=== PATIENT | female | born 1990 | race Caucasian/White ===

== ENCOUNTER → 2016-12-16 | Outpatient (CLI) | payer OTHER | END | disposition home or self-care (01) | LOC: MW.CHOBGYN 08:45 | PROVIDERS: ATTEND Obstetrics & Gynecology | DX: O28.8 Other abnormal findings on antenatal screening of mother (principal) | CPT/HCPCS: 81420 ==

== ENCOUNTER → 2016-12-20 | Outpatient (CLI) | payer OTHER | LOC: MW.CHOBGYN 14:41 | PROVIDERS: ATTEND Obstetrics & Gynecology | DX: Z34.90 Encounter for supervision of normal pregnancy, unspecified, unspecified trimester (principal) | CPT/HCPCS: 81003 ==

== ENCOUNTER → 2017-02-15 | Outpatient (CLI) | payer OTHER | LOC: MW.CHOBGYN 10:50 | PROVIDERS: ATTEND Obstetrics & Gynecology | DX: Z34.90 Encounter for supervision of normal pregnancy, unspecified, unspecified trimester (principal) | CPT/HCPCS: 36415; 81003; 82950; 85027 ==

== ENCOUNTER → 2017-03-01 | Outpatient (CLI) | payer OTHER | LOC: MW.CHOBGYN 09:11 | PROVIDERS: ATTEND Obstetrics & Gynecology | DX: Z34.90 Encounter for supervision of normal pregnancy, unspecified, unspecified trimester (principal) | CPT/HCPCS: 81003 ==

== ENCOUNTER 2017-05-15 05:31 | Inpatient (IN) | payer OTHER ==
[2017-05-15] MEDS ORDERED: Sodium Chloride 0.9% 2.5 ML Syringe FLUSH PRN (05:53)
[2017-05-15] MEDS ORDERED: Carboprost Tromethamine 250 MCG/1 ML Amp IM PRN (05:53)
[2017-05-15] MEDS ORDERED: Butorphanol 1 MG/ML SDV IVPUSH PRN (05:53)
[2017-05-15] MEDS ORDERED: Misoprostol 200 MCG Tab PO PRN (05:53)
[2017-05-15] MEDS ORDERED: Methylergonovine 0.2 MG/1 ML Amp IM PRN (05:53)
[2017-05-15] MEDS ORDERED: Nalbuphine 10 MG/1 ML Vial IVPUSH PRN (05:53)
[2017-05-15] MEDS ORDERED: Lidocaine 1% 50 ML MDV INJECT PRN (05:53)
[2017-05-15] MEDS ORDERED: Sodium Chloride 0.9% 10 ML Syringe FLUSH PRN (05:53)
[2017-05-15] MEDS ORDERED: Water For Irrigation,Sterile 1,000 ML Container IRR PRN (05:53)
[2017-05-15] MEDS ORDERED: Terbutaline 1 MG/ML SDV SUBCUT PRN (06:25)
[2017-05-15] MEDS ORDERED: Oxytocin/Lactated Ringers 30 UNIT/500 ML BAG IV SCH (06:30)
[2017-05-15] MEDS: Lactated Ringers 1,000 ML IV SCH ×4 (06:53→14:09)
--- NOTE | 2017-05-15 08:50 | PCM.LDHP ---
L&D History of Present Illness - General Date of Service: 05/15/17 Admit Problem/Dx: Patient Status Order with Admit Dx/Problem 05/15/17 05:53 Patient Status [ADT] Routine Admission Diagnosis/Problem Admission Diagnosis/Problem Source of Information: Patient History Limitations: Reports: No Limitations - History of Present Illness Improves with: Reports: None Worsens with: Reports: None Associated Symptoms: Reports: N - Related Data Allergies/Adverse Reactions: Allergies Allergy/AdvReac Type Severity Reaction Status Date / Time No Known Allergies Allergy Verified 05/15/17 05:48 Past Medical History Cardiovascular History: Reports: Arrhythmia, Other (See Below) Other Cardiovascular History: SVT 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: Social & Family History - Family History Cardiac: Reports: Heart Murmur Neurological: Reports: Parkinson's Endocrine/Metabolic: Reports: Diabetes, type II - Tobacco Use Smoking Status *Q: Never Smoker Second Hand Smoke Exposure: No - Caffeine Use Caffeine Use: Reports: Soda, Other Other Caffeine Use: soda every other day - Recreational Drug Use Recreational Drug Use: No H&P Review of Systems - Review of Systems: Review Of Systems: See Below General: Reports: No Symptoms HEENT: Reports: No Symptoms Pulmonary: Reports: No Symptoms Cardiovascular: Reports: No Symptoms Gastrointestinal: Reports: No Symptoms Genitourinary: Reports: No Symptoms Musculoskeletal: Reports: No Symptoms Skin: Reports: No Symptoms Psychiatric: Reports: No Symptoms Neurological: Reports: No Symptoms Hematologic/Lymphatic: Reports: No Symptoms Immunologic: Reports: No Symptoms L&D Exam - Exam Exam: See Below - Vital Signs Weight: 60.781 kg - OB Specific Fundal Height In cm: 37 Contraction Intensity: Mild to Moderate Movement: Active Heart Tones: Present Presentation: Vertex - Leung Score Leung Score Consistency: Soft Leung Score Effacement: 51-70% Leung Score Dilation: 1-2 cm Leung Score Infant's Station: -2 - Exam General: Alert, Oriented HEENT: PERRLA, Conjunctiva Clear, EACs Clear, EOMI, Hearing Intact, Mucosa Moist & [place], Nares Patent, Normal Nasal Septum, Posterior Pharynx Clear, TMs Clear Neck: Supple, Trachea Midline Lungs: Clear to Auscultation, Normal Respiratory Effort Cardiovascular: Regular Rate, Regular Rhythm GI/Abdominal Exam: Normal Bowel Sounds, Soft, Non-Tender, No Organomegaly, No Distention, No Abnormal Bruit, No Mass, Pelvis Stable Rectal Exam: Normal Exam, Normal Rectal Tone Genitourinary: Normal external exam, Normal bimanual exam, Normal speculum exam Back Exam: Normal Inspection, Full Range of Motion Extremities: Normal Inspection, Normal Range of Motion, Non-Tender, No Pedal Edema, Normal Capillary Refill Skin: Warm, Dry, Intact Neurological: Cranial Nerves Intact, Reflexes Equal Bilateral Psychiatric: Alert, Normal Affect, Normal Mood - Patient Data Lab Results Last 24 hrs: Laboratory Results - last 24 hr 05/15/17 05/15/17 Range/Units 06:07 06:07 WBC 7.65 (4.0-11.0) K/uL RBC 4.01 L (4.30-5.90) M/uL Hgb 12.0 (12.0-16.0) g/dL Hct 35.5 L (36.0-46.0) % MCV 88.5 (80.0-98.0) fL MCH 29.9 (27.0-32.0) pg MCHC 33.8 (31.0-37.0) g/dL RDW Std Deviation 40.1 (28.0-62.0) fl RDW Coeff of Ksenia 13 (11.0-15.0) % Plt Count 242 (150-400) K/uL MPV 10.70 (7.40-12.00) fL Nucleated RBC % 0.0 /100WBC Nucleated RBCs # 0 K/uL Blood Type O POSITIVE Antibody Screen NEGATIVE Result Diagrams: 05/15/17 06:07 Problem List Initiated/Reviewed/Updated: Yes Orders Last 24hrs: Active Orders 24 hr Category Date Time Status Patient Status [ADT] Routine ADT 05/15/17 05:53 Active Bedrest Bathroom Privileges [RC] ASDIRECTED Care 05/15/17 06:25 Active Communication Order [RC] ASDIRECTED Care 05/15/17 06:25 Active Communication Order [RC] ASDIRECTED Care 05/15/17 06:25 Active Heart Tones [RC] CONTINUOUS Care 05/15/17 05:53 Active Non Stress Test [RC] PER UNIT ROUTINE Care 05/15/17 05:53 Active May Shower [RC] ASDIRECTED Care 05/15/17 05:53 Active Notify Provider [RC] PRN Care 05/15/17 05:53 Active Notify Provider [RC] PRN Care 05/15/17 06:25 Active Oxygen Therapy [RC] ASDIRECTED Care 05/15/17 06:25 Active Up ad Flakita [RC] ASDIRECTED Care 05/15/17 05:53 Active Vaginal Exam [RC] PRN Care 05/15/17 05:53 Active Vaginal Exam [RC] PRN Care 05/15/17 06:25 Active Vital Signs [RC] PER UNIT ROUTINE Care 05/15/17 05:53 Active Vital Signs [RC] PER UNIT ROUTINE Care 05/15/17 06:25 Active Butorphanol [Stadol] Med 05/15/17 05:53 Active 1 mg IVPUSH Q1H PRN Carboprost Tromethamine [Hemabate DS] Med 05/15/17 05:53 Active 250 mcg IM ASDIRECTED PRN Lactated Ringers [Ringers, Lactated] 1,000 ml Med 05/15/17 06:00 Active IV ASDIRECTED Lidocaine 1% [Xylocaine 1%] Med 05/15/17 05:53 Active 50 ml INJECT .ONCE PRN Methylergonovine [Methergine] Med 05/15/17 05:53 Active 0.2 mg IM ASDIRECTED PRN Misoprostol [Cytotec] Med 05/15/17 05:53 Active 200 mcg PO .ONCE PRN Oxytocin/Lactated Ringers [Pitocin in LR 30 Units/500 Med 05/15/17 06:30 Active ML] 30 unit in 500 ml IV TITRATE Sodium Chloride 0.9% [Saline Flush] Med 05/15/17 05:53 Active 10 ml FLUSH ASDIRECTED PRN Sodium Chloride 0.9% [Saline Flush] Med 05/15/17 05:53 Active 2.5 ml FLUSH ASDIRECTED PRN Terbutaline [Brethine] Med 05/15/17 06:25 Active 0.25 mg SUBCUT ASDIRECTED PRN Water For Irrigation,Sterile [Sterile Water for Med 05/15/17 05:53 Active Irrigation] 1,000 ml IRR ASDIRECTED PRN Scalp Electrode [WOMSER] Per Unit Routine Oth 05/15/17 05:53 Ordered Medication Administration Instruction [OM.PC] Q3H Oth 05/15/17 06:30 Ordered Peripheral IV Insertion Adult [OM.PC] Routine Oth 05/15/17 05:53 Ordered Resuscitation Status Routine Resus Stat 05/15/17 05:53 Ordered Medication Orders Butorphanol Tartrate (Stadol) 1 mg IVPUSH Q1H PRN PRN Reason: Pain Carboprost Tromethamine (Hemabate Ds) 250 mcg IM ASDIRECTED PRN PRN Reason: Post Hemorrhage Lactated Ringer's (Ringers, Lactated) 1,000 mls @ 150 mls/hr IV ASDIRECTED AMBER Last Admin: 05/15/17 06:53 Dose: 150 mls/hr Oxytocin/Lactated Ringer's (Pitocin In Lr 30 Units/500 Ml) 30 unit in 500 mls @ 2 mls/hr IV TITRATE AMBER; 2 MUNITS/MIN PRN Reason: Protocol Last Admin: 05/15/17 06:53 Dose: 2 munits/min, 2 mls/hr Lidocaine HCl (Xylocaine 1%) 50 ml INJECT .ONCE PRN PRN Reason: Laceration repair Methylergonovine Maleate (Methergine) 0.2 mg IM ASDIRECTED PRN PRN Reason: Post Hemorrhage Misoprostol (Cytotec) 200 mcg PO .ONCE PRN PRN Reason: Post Hemorrhage Sodium Chloride (Saline Flush) 10 ml FLUSH ASDIRECTED PRN PRN Reason: Keep Vein Open Sodium Chloride (Saline Flush) 2.5 ml FLUSH ASDIRECTED PRN PRN Reason: Keep Vein Open Sterile Water (Sterile Water For Irrigation) 1,000 ml IRR ASDIRECTED PRN PRN Reason: delivery Terbutaline Sulfate (Brethine) 0.25 mg SUBCUT ASDIRECTED PRN PRN Reason: Tacysystole Assessment/Plan Comment:: Term at 1001 Garrett's to 9+ she is admitted for elective induction she 3 cm 70 vertex and -2 hair GPS status is negative we are going to induce her with Pitocin
--- NOTE | 2017-05-15 13:23 | PCM.PREANE ---
Preanesthetic Assessment - Anesthesia/Transfusion/Family Hx Anesthesia History: Prior Anesthesia Without Reaction Transfusion History: No Prior Transfusion(s) - Review of Systems General: No Symptoms Pulmonary: No Symptoms Cardiovascular: No Symptoms Gastrointestinal: No Symptoms Neurological: No Symptoms Other: Reports: None - Physical Assessment Height: 5 ft 3 in Weight: 60.781 kg ASA Class: 2 Mental Status: Alert & Oriented x3 Airway Class: Mallampati = 2 Dentition: Reports: Normal Dentition Thyro-Mental Finger Breadths: 3 Mouth Opening Finger Breadths: 3 ROM/Head Extension: Full Lungs: Clear to Auscultation, Normal Respiratory Effort Cardiovascular: Regular Rate, Regular Rhythm - Lab Values: Laboratory Last Values WBC 7.65 K/uL (4.0-11.0) 05/15/17 06:07 RBC 4.01 M/uL (4.30-5.90) L 05/15/17 06:07 Hgb 12.0 g/dL (12.0-16.0) 05/15/17 06:07 Hct 35.5 % (36.0-46.0) L 05/15/17 06:07 MCV 88.5 fL (80.0-98.0) 05/15/17 06:07 MCH 29.9 pg (27.0-32.0) 05/15/17 06:07 MCHC 33.8 g/dL (31.0-37.0) 05/15/17 06:07 RDW Std Deviation 40.1 fl (28.0-62.0) 05/15/17 06:07 RDW Coeff of Ksenia 13 % (11.0-15.0) 05/15/17 06:07 Plt Count 242 K/uL (150-400) 05/15/17 06:07 MPV 10.70 fL (7.40-12.00) 05/15/17 06:07 Nucleated RBC % 0.0 /100WBC 05/15/17 06:07 Nucleated RBCs # 0 K/uL 05/15/17 06:07 Blood Type O POSITIVE 05/15/17 06:07 Antibody Screen NEGATIVE 05/15/17 06:07 - Allergies Allergies/Adverse Reactions: Allergies Allergy/AdvReac Type Severity Reaction Status Date / Time No Known Allergies Allergy Verified 05/15/17 05:48 - Acknowledgements Anesthesia Type Planned: Epidural Pt an Appropriate Candidate for the Planned Anesthesia: Yes Alternatives and Risks of Anesthesia Discussed w Pt/Guardian: Yes Pt/Guardian Understands and Agrees with Anesthesia Plan: Yes PreAnesthesia Questionnaire HEENT History: Reports: None Cardiovascular History: Reports: Arrhythmia, Other (See Below) Other Cardiovascular History: SVT Respiratory History: Reports: None Gastrointestinal History: Reports: GERD Genitourinary History: Reports: None 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 Para: 1 LMP (Approximate): Musculoskeletal History: Reports: None Neurological History: Reports: None Psychiatric History: Reports: None Endocrine/Metabolic History: Reports: None Hematologic History: Reports: None Immunologic History: Reports: None Oncologic (Cancer) History: Reports: None Dermatologic History: Reports: None - Infectious Disease History Infectious Disease History: Reports: None - Past Surgical History Other Surgical History Comment: 2010 Bilateral Breast Augmentation - SUBSTANCE USE Smoking Status *Q: Never Smoker Second Hand Smoke Exposure: No Recreational Drug Use History: No - CURRENT (IN HOUSE) MEDS Current Meds: Current Medications Butorphanol Tartrate (Stadol) 1 mg IVPUSH Q1H PRN PRN Reason: Pain Carboprost Tromethamine (Hemabate Ds) 250 mcg IM ASDIRECTED PRN PRN Reason: Post Hemorrhage Lactated Ringer's (Ringers, Lactated) 1,000 mls @ 150 mls/hr IV ASDIRECTED AMBER Last Admin: 05/15/17 13:12 Dose: 999 mls/hr Oxytocin/Lactated Ringer's (Pitocin In Lr 30 Units/500 Ml) 30 unit in 500 mls @ 2 mls/hr IV TITRATE AMBER; 2 MUNITS/MIN PRN Reason: Protocol Last Titration: 05/15/17 10:47 Dose: 14 munits/min, 14 mls/hr Lidocaine HCl (Xylocaine 1%) 50 ml INJECT .ONCE PRN PRN Reason: Laceration repair Methylergonovine Maleate (Methergine) 0.2 mg IM ASDIRECTED PRN PRN Reason: Post Hemorrhage Misoprostol (Cytotec) 200 mcg PO .ONCE PRN PRN Reason: Post Hemorrhage Sodium Chloride (Saline Flush) 10 ml FLUSH ASDIRECTED PRN PRN Reason: Keep Vein Open Sodium Chloride (Saline Flush) 2.5 ml FLUSH ASDIRECTED PRN PRN Reason: Keep Vein Open Sterile Water (Sterile Water For Irrigation) 1,000 ml IRR ASDIRECTED PRN PRN Reason: delivery Terbutaline Sulfate (Brethine) 0.25 mg SUBCUT ASDIRECTED PRN PRN Reason: Tacysystole Discontinued Medications Nalbuphine HCl (Nubain) 10 mg IVPUSH Q1H PRN PRN Reason: Pain (severe 7-10) Stop: 05/15/17 07:54
[2017-05-15] MEDS ORDERED: Ropivacaine HCl/PF 100 ML ONE (13:25)
[2017-05-15] MEDS ORDERED: fentaNYL 100 MCG/2 ML SDV ONE (13:25)
[2017-05-15] MEDS ORDERED: Ibuprofen 400 MG Tab PO PRN (18:25)
[2017-05-15] MEDS ORDERED: Witch Hazel Medicated Pads 40/Jar TOP PRN (18:25)
[2017-05-15] MEDS ORDERED: Benzocaine/Menthol 20%-0.5% Spray 78 GM Cannister TOP PRN (18:25)
[2017-05-15] MEDS ORDERED: Bisacodyl 10 MG Supp RECTAL PRN (18:25)
[2017-05-15] MEDS ORDERED: oxyCODONE 5 MG Tab PO PRN (18:25)
[2017-05-15] MEDS ORDERED: Lanolin 100% Cream 7 GM Tube TOP PRN (18:25)
[2017-05-15] MEDS ORDERED: Acetaminophen 500 MG Tab PO PRN ×2 (18:25)
[2017-05-15] MEDS ORDERED: Docusate Sodium 100 MG Cap PO PRN (18:25)
--- NOTE | 2017-05-15 18:37 | PCM.DEL ---
L & D Note - General Info Date of Service: 05/15/17 Mother's Due Date: 05/11/17 - Delivery Note Labor: Spontaneous, Augmented by Oxytocin Delivery Outcome: Livebirth Infant Delivery Method: Spontaneous Vaginal Delivery Delivery Mode: Spontaneous Presentation: Vertex Nuchal Cord: None Anesthesia Type: None Amniotic Fluid Description: Clear Episiotomy Type: None Laceration: 1st Degree Suture type: Vicryl Suture size: 3-0 Placenta: Intact, Spontaneous Cord: 3 Vessels Estimated Blood Loss: 100 Resuscitation Needed: No [place]: Stimulated Second Stage Interventions: Reports: Pushing Effectively, Pushing, McRobert's Position, Pushing, Pulls Own Legs Back Induction Criteria - Augmentation Estimated Pelvis: Reports: Adequate Weight Estimated:: Reports: AGA Reassuring monitoring strip: Yes Absence of tachy systole: Yes - General Info Date of Service: 05/15/17 Functional Status: Reports: Pain Controlled, Tolerating Diet - Review of Systems General: Reports: No Symptoms HEENT: Reports: No Symptoms Pulmonary: Reports: No Symptoms Cardiovascular: Reports: No Symptoms Gastrointestinal: Reports: No Symptoms Genitourinary: Reports: No Symptoms Musculoskeletal: Reports: No Symptoms Skin: Reports: No Symptoms Neurological: Reports: No Symptoms Psychiatric: Reports: No Symptoms - Patient Data Weight - Most Recent: 60.781 kg Lab Results Last 24 Hours: Laboratory Results - last 24 hr 05/15/17 05/15/17 Range/Units 06:07 06:07 WBC 7.65 (4.0-11.0) K/uL RBC 4.01 L (4.30-5.90) M/uL Hgb 12.0 (12.0-16.0) g/dL Hct 35.5 L (36.0-46.0) % MCV 88.5 (80.0-98.0) fL MCH 29.9 (27.0-32.0) pg MCHC 33.8 (31.0-37.0) g/dL RDW Std Deviation 40.1 (28.0-62.0) fl RDW Coeff of Ksenia 13 (11.0-15.0) % Plt Count 242 (150-400) K/uL MPV 10.70 (7.40-12.00) fL Nucleated RBC % 0.0 /100WBC Nucleated RBCs # 0 K/uL Blood Type O POSITIVE Antibody Screen NEGATIVE Med Orders - Current: Current Medications Acetaminophen (Tylenol Extra Strength) 500 mg PO Q4H PRN PRN Reason: Pain Acetaminophen (Tylenol Extra Strength) 1,000 mg PO Q4H PRN PRN Reason: Pain Benzocaine/Menthol (Dermoplast Pain Relief 20%-0.5% [place]) 78 gm TOP ASDIRECTED PRN PRN Reason: Perineal Comfort Measure Bisacodyl (Dulcolax) 10 mg RECTAL .ONCE PRN PRN Reason: Constipation Docusate Sodium (Colace) 100 mg PO BID PRN PRN Reason: Constipation Emollient Ointment (Lansinoh Hpa) 0 gm TOP ASDIRECTED PRN PRN Reason: Sore Nipples Ibuprofen (Motrin) 400 mg PO Q4H PRN PRN Reason: Pain Ibuprofen (Motrin) 800 mg PO Q6H PRN PRN Reason: Pain Oxycodone HCl (Oxycodone) 5 mg PO Q2H PRN PRN Reason: Pain Witch Jessica (Tucks) 1 pad TOP ASDIRECTED PRN PRN Reason: comfort care Discontinued Medications Butorphanol Tartrate (Stadol) 1 mg IVPUSH Q1H PRN PRN Reason: Pain Carboprost Tromethamine (Hemabate Ds) 250 mcg IM ASDIRECTED PRN PRN Reason: Post Hemorrhage Fentanyl (Sublimaze) Confirm Administered Dose 100 mcg .ROUTE .STK-MED ONE Stop: 05/15/17 13:26 Last Admin: 05/15/17 16:52 Dose: Not Given Lactated Ringer's (Ringers, Lactated) 1,000 mls @ 150 mls/hr IV ASDIRECTED AMBER Last Admin: 05/15/17 14:09 Dose: 150 mls/hr Oxytocin/Lactated Ringer's (Pitocin In Lr 30 Units/500 Ml) 30 unit in 500 mls @ 2 mls/hr IV TITRATE AMBER; 2 MUNITS/MIN PRN Reason: Protocol Last Titration: 05/15/17 14:47 Dose: 12 munits/min, 12 mls/hr Ropivacaine (Naropin 0.2%) Confirm Administered Dose 100 mls @ as directed .ROUTE .STK-MED ONE Stop: 05/15/17 13:26 Last Admin: 07/24/17 16:52 Dose: Not Given Lidocaine HCl (Xylocaine 1%) 50 ml INJECT .ONCE PRN PRN Reason: Laceration repair Methylergonovine Maleate (Methergine) 0.2 mg IM ASDIRECTED PRN PRN Reason: Post Hemorrhage Misoprostol (Cytotec) 200 mcg PO .ONCE PRN PRN Reason: Post Hemorrhage Nalbuphine HCl (Nubain) 10 mg IVPUSH Q1H PRN PRN Reason: Pain (severe 7-10) Stop: 05/15/17 07:54 Sodium Chloride (Saline Flush) 10 ml FLUSH ASDIRECTED PRN PRN Reason: Keep Vein Open Sodium Chloride (Saline Flush) 2.5 ml FLUSH ASDIRECTED PRN PRN Reason: Keep Vein Open Sterile Water (Sterile Water For Irrigation) 1,000 ml IRR ASDIRECTED PRN PRN Reason: delivery Terbutaline Sulfate (Brethine) 0.25 mg SUBCUT ASDIRECTED PRN PRN Reason: Tacysystole - Exam General: Alert, Oriented, Cooperative, No Acute Distress Lungs: Normal Respiratory Effort GI/Abdominal Exam: Soft, Non-Tender, No Organomegaly, No Distention, No Mass (Female) Exam: Normal External Exam, Normal Bimanual Exam, Vaginal Bleeding, Vaginal Lesions Back Exam: Full Range of Motion Extremities: Normal Inspection, Normal Range of Motion, Non-Tender Skin: Warm, Dry, Intact Wound/Incisions: Healing Well Neurological: No New Focal Deficit, Normal Speech, Normal Tone Psy/Mental Status: Alert, Normal Affect, Normal Mood - Problem List & Annotations (1) Supervision of normal IUP (intrauterine ) in multigravida SNOMED Code(s): 114120808, 347837509, 579581562 Code(s): Z34.80 - ENCOUNTER FOR SUPRVSN OF NORMAL , UNSP TRIMESTER Status: Acute Priority: High Current Visit: Yes Qualifiers: Trimester: third trimester Qualified Code(s): Z34.83 - Encounter for supervision of other normal , third trimester (2) (normal spontaneous vaginal delivery) SNOMED Code(s): 84290458 Code(s): O80 - ENCOUNTER FOR FULL-TERM UNCOMPLICATED DELIVERY Status: Acute Priority: Medium Current Visit: Yes - Problem List Review Problem List Initiated/Reviewed/Updated: Yes - My Orders Last 24 Hours: My Active Orders 05/15/17 18:25 Acetaminophen [Tylenol Extra Strength] 1,000 mg PO Q4H PRN Acetaminophen [Tylenol Extra Strength] 500 mg PO Q4H PRN Benzocaine/Menthol [Dermoplast Pain Relief 20%-0.5% [place]] 78 gm TOP ASDIRECTED PRN Bisacodyl [Dulcolax] 10 mg RECTAL .ONCE PRN Docusate Sodium [Colace] 100 mg PO BID PRN Ibuprofen [Motrin] 400 mg PO Q4H PRN Ibuprofen [Motrin] 800 mg PO Q6H PRN Lanolin [Lansinoh HPA] See Dose Instructions TOP ASDIRECTED PRN Witch Jessica [Tucks] 1 pad TOP ASDIRECTED PRN oxyCODONE 5 mg PO Q2H PRN Resuscitation Status Routine 05/15/17 18:26 May Shower [RC] ASDIRECTED Up ad Flakita [RC] ASDIRECTED Vital Signs [RC] PER UNIT ROUTINE Assess Lochia [WOMSER] Per Unit Routine Assess Uterine Involution [WOMSER] Per Unit Routine 05/15/17 18:29 Patient Status [ADT] Routine 05/15/17 20:00 Peripheral IV Discontinue [OM.PC] ONETIME 05/16/17 Breakfast Regular Diet [DIET] - Assessment Assessment:: Delivery of viable male, APGARS 9/9, Wt: 7lb 8oz, 1st degree lac with repair, EBL 100cc, Stable, bonding well with infant - Plan Plan:: Term at 1001 Garrett's to 9+ she is admitted for elective induction she 3 cm 70 vertex and -2 hair GPS status is negative we are going to induce her with Pitocin Delivery Routine pp plan of care
[2017-05-15] MEDS: Ibuprofen 800 MG Tab PO PRN (19:05)
[2017-05-16] MEDS: Ibuprofen 800 MG Tab PO PRN ×3 (01:09→15:14)
--- NOTE | 2017-05-16 06:51 | PCM48HPAN ---
Post Anesthesia Note - EVALUATION WITHIN 48HRS OF ANESTHETIC Vital Signs in Normal Range: Yes Patient Participated in Evaluation: Yes Respiratory Function Stable: Yes Airway Patent: Yes Cardiovascular Function Stable: Yes Hydration Status Stable: Yes Pain Control Satisfactory: Yes Nausea and Vomiting Control Satisfactory: Yes Mental Status Recovered: Yes
--- NOTE | 2017-05-16 08:24 | PCM.DCSUM1 ---
Discharge Summary - Hospital Course Free Text/Narrative:: Discharge home with . Follow up 6 weeks or sooner if needed. - Discharge Data Discharge Date: 05/16/17 Discharge Disposition: Home, Self-Care 01 Condition: Good - Discharge Diagnosis/Problem(s) (1) Supervision of normal IUP (intrauterine ) in multigravida SNOMED Code(s): 786347452, 562252444, 235978508 ICD Code: Z34.80 - ENCOUNTER FOR SUPRVSN OF NORMAL , UNSP TRIMESTER Status: Acute Priority: High Current Visit: Yes Qualifiers: Trimester: third trimester Qualified Code(s): Z34.83 - Encounter for supervision of other normal , third trimester (2) (normal spontaneous vaginal delivery) SNOMED Code(s): 19956578 ICD Code: O80 - ENCOUNTER FOR FULL-TERM UNCOMPLICATED DELIVERY Status: Acute Priority: Medium Current Visit: Yes - Patient Instructions Diet: Usual Diet as Tolerated Activity: As Tolerated, Rest and Relax Today Driving: May Drive Today Showering/Bathing: May Shower Notify Provider of: Fever, Increased Pain, Swelling and Redness, Nausea and/or Vomiting Other/Special Instructions: Discharge home with . Follow up 6 weeks or sooner if needed. - Discharge Plan Referrals: [facility] [Outside] Esteban Welsh MD [Physician] - 06/27/17 1:30 pm - General Info Date of Service: 05/16/17 Admission Dx/Problem (Free Text: Patient Status Order with Admit Dx/Problem 05/15/17 05:53 Patient Status [ADT] Routine Admission Diagnosis/Problem Admission Diagnosis/Problem Functional Status: Reports: Pain Controlled, Tolerating Diet, Ambulating, Urinating - Review of Systems General: Reports: No Symptoms HEENT: Reports: No Symptoms Pulmonary: Reports: No Symptoms Cardiovascular: Reports: No Symptoms Gastrointestinal: Reports: No Symptoms Genitourinary: Reports: No Symptoms Musculoskeletal: Reports: No Symptoms Skin: Reports: No Symptoms Neurological: Reports: No Symptoms Psychiatric: Reports: No Symptoms - Patient Data Vitals - Most Recent: Last Vital Signs Temp 36.8 C 05/16/17 04:43 Pulse 65 05/16/17 04:43 Resp 14 05/16/17 04:43 BP 148/73 H 05/16/17 04:43 Pulse Ox 98 05/16/17 04:43 Weight - Most Recent: 60.781 kg Med Orders - Current: Current Medications Acetaminophen (Tylenol Extra Strength) 500 mg PO Q4H PRN PRN Reason: Pain Acetaminophen (Tylenol Extra Strength) 1,000 mg PO Q4H PRN PRN Reason: Pain Benzocaine/Menthol (Dermoplast Pain Relief 20%-0.5% [place]) 0 gm TOP ASDIRECTED PRN PRN Reason: Perineal Comfort Measure Last Admin: 05/15/17 19:06 Dose: 1 canister Bisacodyl (Dulcolax) 10 mg RECTAL .ONCE PRN PRN Reason: Constipation Docusate Sodium (Colace) 100 mg PO BID PRN PRN Reason: Constipation Emollient Ointment (Lansinoh Hpa) 0 gm TOP ASDIRECTED PRN PRN Reason: Sore Nipples Last Admin: 05/15/17 19:05 Dose: 1 tube Ibuprofen (Motrin) 400 mg PO Q4H PRN PRN Reason: Pain Ibuprofen (Motrin) 800 mg PO Q6H PRN PRN Reason: Pain Last Admin: 05/16/17 01:09 Dose: 800 mg Oxycodone HCl (Oxycodone) 5 mg PO Q2H PRN PRN Reason: Pain Witch Jessica (Tucks) 1 pad TOP ASDIRECTED PRN PRN Reason: comfort care Last Admin: 05/15/17 19:06 Dose: 1 tub Discontinued Medications Butorphanol Tartrate (Stadol) 1 mg IVPUSH Q1H PRN PRN Reason: Pain Carboprost Tromethamine (Hemabate Ds) 250 mcg IM ASDIRECTED PRN PRN Reason: Post Hemorrhage Fentanyl (Sublimaze) Confirm Administered Dose 100 mcg .ROUTE .STK-MED ONE Stop: 05/15/17 13:26 Last Admin: 05/15/17 16:52 Dose: Not Given Lactated Ringer's (Ringers, Lactated) 1,000 mls @ 150 mls/hr IV ASDIRECTED AMBER Last Admin: 05/15/17 14:09 Dose: 150 mls/hr Oxytocin/Lactated Ringer's (Pitocin In Lr 30 Units/500 Ml) 30 unit in 500 mls @ 2 mls/hr IV TITRATE AMBER; 2 MUNITS/MIN PRN Reason: Protocol Last Titration: 05/15/17 18:01 Dose: 999 mls/hr Ropivacaine (Naropin 0.2%) Confirm Administered Dose 100 mls @ as directed .ROUTE .STK-MED ONE Stop: 05/15/17 13:26 Last Admin: 05/15/17 16:52 Dose: Not Given Lidocaine HCl (Xylocaine 1%) 50 ml INJECT .ONCE PRN PRN Reason: Laceration repair Methylergonovine Maleate (Methergine) 0.2 mg IM ASDIRECTED PRN PRN Reason: Post Hemorrhage Misoprostol (Cytotec) 200 mcg PO .ONCE PRN PRN Reason: Post Hemorrhage Nalbuphine HCl (Nubain) 10 mg IVPUSH Q1H PRN PRN Reason: Pain (severe 7-10) Stop: 05/15/17 07:54 Sodium Chloride (Saline Flush) 10 ml FLUSH ASDIRECTED PRN PRN Reason: Keep Vein Open Sodium Chloride (Saline Flush) 2.5 ml FLUSH ASDIRECTED PRN PRN Reason: Keep Vein Open Sterile Water (Sterile Water For Irrigation) 1,000 ml IRR ASDIRECTED PRN PRN Reason: delivery Terbutaline Sulfate (Brethine) 0.25 mg SUBCUT ASDIRECTED PRN PRN Reason: Tacysystole - Exam General: Reports: Alert, Oriented, Cooperative, No Acute Distress Lungs: Reports: Normal Respiratory Effort GI/Abdominal Exam: Soft, Non-Tender, No Organomegaly (Female) Exam: Vaginal Bleeding Rectal (Female) Exam: Deferred Back Exam: Reports: Full Range of Motion Extremities: Normal Range of Motion, No Pedal Edema Skin: Reports: Warm, Dry, Intact Wound/Incisions: Reports: Healing Well Neurological: Reports: No New Focal Deficit, Normal Gait, Normal Speech, Normal Tone Psy/Mental Status: Reports: Alert, Normal Affect, Normal Mood *Q Meaningful Use (DIS) - VTE *Q VTE Criteria *Q: - Stroke *Q Stroke Criteria *Q: - AMI *Q AMI Criteria *Q:
[2017-05-16 20:18] VITALS: BP 137/83
== END 2017-05-16 21:45 | disposition home or self-care (01) | DRG 775 ==
LOC: MW.OBCHECK 05:31 → MW.OB 05:32 → OBSVTOIN 18:00 → MW.OB 18:00
PROVIDERS: ADMIT Obstetrics & Gynecology; ATTEND Obstetrics & Gynecology
PROC: 10E0XZZ Delivery of Products of Conception, External Approach (ICD-10-PCS; principal; 2017-05-15)
PROC: 0HQ9XZZ Repair Perineum Skin, External Approach (ICD-10-PCS; 2017-05-15)
PROC: 3E033VJ Introduction of Other Hormone into Peripheral Vein, Percutaneous Approach (ICD-10-PCS; 2017-05-15)
DX: O70.0 First degree perineal laceration during delivery (principal); Z3A.40 40 weeks gestation of pregnancy; Z37.0 Single live birth
CPT/HCPCS: 01967; 36415; 59025; 85027; 86850; 86900; 86901; A9270-GY; J2795; J3010; J7120